=== PATIENT | female | born 1955 | race Caucasian/White ===

== ENCOUNTER 2017-08-19 12:09 | Emergency (ER) | payer MEDICAID ==
[~2017-08-19] VITALS: Ht 157.5 cm; Wt 75.0 kg
[2017-08-19 12:12] VITALS: BP 146/78
[2017-08-19] MEDS ORDERED: PHENAZOPYRIDINE 200 MG TABLET PO ONE (13:00)
[2017-08-19 13:30] LABS: BASOPHILS # (AUTO) 0.04 x10^3/uL (0-0.1); BASOPHILS % (AUTO) 0 % (0-1); EOSINOPHILS % (AUTO) 3 % (1-7); LYMPHOCYTES # (AUTO) 2.18 x10^3/uL (1-3.4); LYMPHOCYTES % (AUTO) 19 % (22-44); MD NO; MEAN CORPUSCULAR HEMOGLOBIN 31.7 pg (27.0-34.8); MEAN CORPUSCULAR HGB CONC 33.3 g/dL (32.4-35.8); MEAN CORPUSCULAR VOLUME 95.3 fL (80-100); MEAN PLATELET VOLUME 8.8 fL (7.4-10.4); MONOCYTES # (AUTO) 0.66 x10^3/uL (0.2-0.8); MONOCYTES % (AUTO) 6 % (2-9); NEUTROPHILS # (AUTO) 8.37 x10^3/uL (1.8-6.8); NEUTROPHILS % (AUTO) 72 % (42-75); PLATELET COUNT 294 x10^3/uL (130-400); RED BLOOD COUNT 4.65 x10^6/uL (3.82-5.3)
[2017-08-19 13:38] LABS: ALBUMIN 3.6 g/dL (3.4-5.0); ANION GAP 7 mmol/L (5-15); CALCIUM 8.7 mg/dL (8.5-10.1); CHLORIDE 104 mmol/L (98-107)
[2017-08-19] MEDS ORDERED: PHENAZOPYRIDINE 200 MG TABLET ONE (14:08)
[2017-08-19 14:17] LABS: CULTURE INDICATED? YES; MICROSCOPIC INDICATED
== END 2017-08-19 16:04 | disposition home or self-care (01) ==
LOC: ED 15:35
DX: N30.91 Cystitis, unspecified with hematuria (principal); N39.0 Urinary tract infection, site not specified; M54.5 Low back pain
CPT/HCPCS: 36415; 80048; 81001; 82040; 85025; 87077; 87086; 87186; 99284

== ENCOUNTER 2020-03-17 05:13 | Emergency (ER) | payer MEDICAID ==
[~2020-03-17] VITALS: Ht 167.6 cm; Wt 79.0 kg
--- NOTE | 2020-03-17 05:21 | NUR ---
PT BIB [facility] AFTER PT EXPERIENCED ACUTE ANAPHYLAXIS REACTION THIS EVENING TO PEANUT BUTTER CONTAINING SUNFLOWER OIL. PT INGESTED SMALL AMOUNT AND REALIZED SHE WAS HAVING A REACTION AND IMMEDIATELY ATE 3, 25 MG TABLETS OF BENADRYL. PT WAS FOUND BY FIRE DISPATCHERS ON ARRIVAL TO PT HOME TO BE DIAPHORETIC, PROFOUNDLY HYPOTENSIVE, RESPIRATORY DECLINE AND ANGIOEDEMA. FIRE ADMINISTERED 50 MG MORE OF IV BENADRYL. WHEN EMS ARRIVED ON THE SCENE, PT WAS STILL HYPOTENSIVE. PIV ACCESS ESTABLISHED EN ROUTE TO [facility]. PT WAS GIVEN 125 MG SOLUMEDROL, 0.3 MG OF EPINEPHRINE, AND AN ALBUTEROL TREATMENT WITH APPROXIMATELY 500 ML NS ADMINISTERED A FLUID BOLUS. UPON ARRIVAL TO [facility], PT PLACED INTO GOWN AND ATTACHED TO CARDIAC AND VS MONITORS. VSS AT THIS TIME. PT RESTING COMFORTABLY IN GURNEY ON 3L NC WITH CALL LIGHT WITHIN REACH. DR. RUBY GIVEN BS REPORT OF PT. ALL QUESTIONS ANSWERED. WILL MONITOR PT CONDITION CONTINUOUSLY UNTIL SAFE FOR D/C.
--- NOTE | 2020-03-17 05:34 | NUR ---
bs report from Didier SONG, pt care transferred at this time. WCTM. pt resting in [facility]. no changes in condition. VSS
--- NOTE | 2020-03-17 05:38 | NUR ---
REPORT OF PT TO NOHEMI LAUREN. ALL QUESTIONS ANSWERED.
[2020-03-17] MEDS ORDERED: SODIUM CHLORIDE 0.9% 1,000 ML IV ONE (05:58)
[2020-03-17] MEDS ORDERED: SODIUM CHLORIDE FLUSH 10ML SYR IVF ONE (06:00)
--- NOTE | 2020-03-17 06:18 | NUR ---
IVF STARTED, PT RESTING ON GURNEY NO NEEDS AT THIS TIME RESP EVEN AND UNLABORED.
--- NOTE | 2020-03-17 06:57 | NUR ---
bedside report to Regine SONG, pt care transferred at this time.
[2020-03-17] MEDS ORDERED: NEOSPORIN OINT. PKT 1 PACKET ONE (06:58)
--- NOTE | 2020-03-17 06:59 | NUR ---
REPORT RECEIVED FROM NOHEMI LAUREN.
--- NOTE | 2020-03-17 07:57 | NUR ---
PATIENT RESTING IN GURNEY WITH SPOUSE AT BEDSIDE, NO C/O PAIN AT THIS TIME. PATIENT STATES HER LEFT LEG IS STILL ITCHY, BUT HAS IMPORVED SINCE COMING TO THE HOSPITAL. NO FURTHER NEEDS AT THIS TIME.
--- NOTE | 2020-03-17 08:35 | NUR ---
Patient is resting comfortably in bed. Vital Signs within normal limits, no further needs at this time.
[2020-03-17 08:59] VITALS: BP 109/50
--- NOTE | 2020-03-17 10:23 | NUR ---
CARE FOR DC ONLY PROVIDED: PT SITTING UP ON GURNEY. NO RESP DISTRESS NOTED. SPEAKING IN COMPLETE SENTENCES. IV DC'D WITH CANNULA INTACT. REVIEWED DC INSTRUCTIONS WITH PT, UNDERSTANDING VERBALIZED. PT DECLINED W/C. LEFT AMB, GAIT STEADY. PTS ARRIVED TO TRANSPORT PT HOME.
== END 2020-03-17 10:26 | disposition home or self-care (01) ==
LOC: ED 05:17
DX: T78.05XA Anaphylactic reaction due to tree nuts and seeds, initial encounter (principal); R06.00 Dyspnea, unspecified; E03.9 Hypothyroidism, unspecified; I10 Essential (primary) hypertension; E78.00 Pure hypercholesterolemia, unspecified; Z87.891 Personal history of nicotine dependence
CPT/HCPCS: 99285; J7030

== ENCOUNTER 2020-04-01 19:14 | Emergency (ER) | payer MEDICAID ==
[~2020-04-01] VITALS: Ht 157.5 cm; Wt 83.1 kg
[2020-04-01 19:16] VITALS: BP 142/66
[2020-04-01] MEDS ORDERED: PROPARACAINE OPHTH 0.5%, 15ML ONE (19:34)
[2020-04-01] MEDS ORDERED: FLUORESCEIN OPHTHALMIC 1 MG STRIP ONE (19:34)
--- NOTE | 2020-04-01 19:40 | NUR ---
assumed care of pt. pt hre for eye pain. Ailin VALVERDE at bedside for eye exam
[2020-04-01] MEDS ORDERED: PROPARACAINE OPHTH 0.5%, 15ML RIGHTEYE ONE (20:00)
[2020-04-01] MEDS ORDERED: HYDROcodone/APAP 5/325 TABLET PO ONE (20:00)
[2020-04-01] MEDS ORDERED: FLUORESCEIN OPHTHALMIC 1 MG STRIP RIGHTEYE ONE (20:00)
[2020-04-01] MEDS ORDERED: ERYTHROMYCIN OPHTH 0.5%, 1GM OP ONE (20:30)
--- NOTE | 2020-04-01 20:35 | NUR ---
pt resting quietly with eyes closed. easily arousale. pt reports tht she had a S/O r eye pain tonight. denies injury. denies FB. pt eye is red and is tearing. no D/C. pt states that she is having intermittent blurred vision. no other c/o at this time. pt to be medicated for pain. pt avised not to drive after [place]. pt verbalized understanding and states that she does not drive. DO at bedside to drive her home.
[2020-04-01] MEDS ORDERED: HYDROcodone/APAP 5/325 TABLET ONE (20:37)
--- NOTE | 2020-04-01 21:01 | NUR ---
this pt was D/C by another RN
== END 2020-04-01 21:01 | disposition home or self-care (01) ==
LOC: ED 19:44
DX: S05.01XA Injury of conjunctiva and corneal abrasion without foreign body, right eye, initial encounter (principal); I10 Essential (primary) hypertension; E78.00 Pure hypercholesterolemia, unspecified; E03.9 Hypothyroidism, unspecified; Z90.710 Acquired absence of both cervix and uterus; X58.XXXA Exposure to other specified factors, initial encounter; Y93.89 Activity, other specified; Y92.89 Other specified places as the place of occurrence of the external cause; Y99.8 Other external cause status
CPT/HCPCS: 99283

== ENCOUNTER → 2020-08-03 | Outpatient (CLI) | payer MEDICAID | END | disposition home or self-care (01) | LOC: RAD 11:27 | PROVIDERS: ATTEND Internal Medicine | DX: J98.4 Other disorders of lung (principal); J44.9 Chronic obstructive pulmonary disease, unspecified | CPT/HCPCS: 71046 ==

== ENCOUNTER → 2020-08-21 | Outpatient (CLI) | payer MEDICAID | END | disposition home or self-care (01) | LOC: CFH 15:22 | PROVIDERS: ATTEND Internal Medicine | DX: J92.9 Pleural plaque without asbestos (principal); I25.10 Atherosclerotic heart disease of native coronary artery without angina pectoris; K44.9 Diaphragmatic hernia without obstruction or gangrene; R91.8 Other nonspecific abnormal finding of lung field | CPT/HCPCS: 71250 ==